=== PATIENT | male | born 1990 | race Caucasian/White ===

== ENCOUNTER 2020-11-05 10:34 | Emergency (ER) | payer OTHER | END 2020-11-05 11:12 | disposition home or self-care (01) | LOC: JVIRT 10:34 | DX: Z11.52 Encounter for screening for COVID-19 (principal) | CPT/HCPCS: C9803; G2251-GT; Q3014-GT; U0003 ==

== ENCOUNTER 2020-12-19 12:25 | Emergency (ER) | payer OTHER ==
[2020-12-20 11:09] LABS: SARS-CoV-2 NAA Not Detected (Not Detected)
== END 2020-12-19 14:05 | disposition home or self-care (01) ==
LOC: JVIRT 12:25
DX: Z20.822 Contact with and (suspected) exposure to COVID-19 (principal)
CPT/HCPCS: C9803; G2251-GT; Q3014-GT; U0003; U0005